=== PATIENT | male | born 1990 | race Caucasian/White ===

== ENCOUNTER 2017-04-08 05:19 | Emergency (ER) | payer SELFPAY ==
[~2017-04-08] VITALS: Ht 167.6 cm; Wt 77.6 kg
[~2017-04-08 05:19] MED LIST: AMOXIL500 MG OR; CIPRO500 MG OR; FLAGYL500 MG OR; GENTAMICIN SULF5 ML OP; LORTAB 5 OR; NAPROSYN500 MG OR; NO HOME MEDS; TORADOL OR; ULTRAM50 M1 PO; ULTRAM50 MG OR
[2017-04-08] MEDS ORDERED: CEPHALEXIN500 MG PO (06:07)
[2017-04-08] MEDS ORDERED: NAPROSYN500 MG PO (06:07)
[2017-04-08 06:24] VITALS: BP 129/74
== END 2017-04-08 06:26 | disposition home or self-care (01) | DRG 558 ==
LOC: ED 05:19
DX: M70.21 Olecranon bursitis, right elbow (principal)